=== PATIENT | male | born 1990 | race African-American/Black ===

== ENCOUNTER 2019-08-14 09:21 | Emergency (ER) | payer OTHER ==
[~2019-08-14] VITALS: Ht 185.4 cm; Wt 104.3 kg
--- NOTE | ~2019-08-14 | EMS ---
[address] [address] EMS Patient Care Report Name: VIJI ORTEGA Room #: PRE M.R.#: [id number] Admission: Attend Phys: Discharge: Date of : [birth year] Report #: [id number] THIS REPORT FOR: //name// Report Transmitted: 08/14/2019 08:53 EMS Care Summary [place], [place]/[facility] Incident [id number] @ 08/14/2019 08:44 Incident Location [address] [place] [address] Patient VIJI ORTEGA Male, 29 Years 1990 Patient Address [address] [place], [place] [id number] Patient History None Reported, Patient Allergies No known allergies, Patient Medications None Reported, Chief Complaint POSTICTAL, CONFUSED, COMBATIVE Disposition Transported No Lights/[place] Dispatch Reason Convulsions/Seizure Transported To [facility] Narrative UPON ARRIVAL PT ON FLOOR BY DOOR BEING HELD BY FRIEND. SHE STATES SHE HEARD HIM FALL TO THE GROUND AND WITNESSED SOME SEIZURE ACTIVITY. PT HAS NO SEIZURE HX. PT WAS DRINKING SOME LAST NIGHT AND UNKNOWN OF ANY DRUG USE. PT APPEARS POSTICTAL AND IS UNABLE TO FOLLOW ANY COMMANDS. UNABLE TO GET VITALS DUE TO PT [address] [address] EMS Patient Care Report Name: VIJI ORTEGA Room #: PRE ER M.R.#: [id number] Admission: Attend Phys: Discharge: Date of : [birth year] Report #: [id number] FLAILING ABOUT. PT LIFTED TO COT AND LOADED. PT PULLS OUT IV WHEN INSERTED. PT HAS TO BE RESTRAINED TO COT AND ATTEMPTS TO BITE CREW. HANDS TAKEN OFF PT TO LET HIM LEAVE TO PREVENT ANY HARM TO CREW. PT'S FRIENDS CONVINCES HIM TO STAY IN AMBULANCE. PT TRANSPORTED TO ER WITH ONLY [place], PT IS STILL UNCOOPERATIVE BUT STAYS CALM LONG NOTHING IS BEING DONE TO HIM. Initial Vitals @08:49P: 120,R: 24,Pain: 0/10,GCS: 11,Glucose: 78, @09:10P: 120,R: 20,GCS: 14, Assessments @08:49MENTAL:Confused,SKIN:Diaphoresis,HEENT:Eyes: Right: Dilated,Eyes: Left: Dilated,LUNG SOUNDS:General: No Abnormalities,ABDOMEN:General: No Abnormalities,PELVIS//GI:EXTREMITIES:Left Arm: No Abnormalities,Right Arm: No Abnormalities,Left Leg: No Abnormalities,Right Leg: No Abnormalities,PULSE:Radial: 2+ Normal,NEURO:Seizures, Impression Seizures Procedures @08:49ALS AssessmentResponse: UnchangedSucceeded@09:00Saline Lock 0cc (20 ga) Site: Antecubital-LeftResponse: UnchangedFailed Timeline 08:42,Call Received 08:42,Dispatch Notified 08:44,Dispatched 08:44,En Route 08:47,On Scene 08:48,At Patient 08:49,ALS Assessment,Response: UnchangedSucceeded, 08:49,BP: / M,PULSE: 120,RR: 24 R,SPO2: Ox,ETCO2: ,B,PAIN: 0,GCS: 11, 09:00,Saline Lock 0cc 20 ga Site: Antecubital-Left,Response: UnchangedFailed, 09:04,Depart Scene 09:10,BP: / M,PULSE: 120,RR: 20 R,SPO2: Ox,ETCO2: ,BG: ,PAIN: ,GCS: 14, 09:16,At Destination 09:35,Call Closed Disclaimer v1.1 Copyright 2020 [employer] This EMS Care Summary contains data elements from the applicable legal record (which may be displayed differently). It is designed to provide pertinent information for the following purposes: continuity of care, clinical quality, and state data reporting. The complete legal record is available to ED staff and administrators of the receiving hospital in [employer] Patient Tracker. All data [address] [address] EMS Patient Care Report Name: VIJI ORTEGA Room #: [facility] M.R.#: [id number] Admission: Attend Phys: Discharge: Date of : [birth year] Report #: [id number] is provided "as is."
[2019-08-14 09:45] LABS: URINE BILIRUBIN NEGATIVE (Negative); URINE BLOOD 2+ (Negative); URINE CLARITY CLEAR; URINE COLOR YELLOW; URINE GLUCOSE-RANDOM* NEGATIVE (Negative); URINE KETONES NEGATIVE (Negative); URINE LEUKOCYTES-REFLEX NEGATIVE (Negative); URINE NITRITE-REFLEX NEGATIVE (Negative); URINE PROTEIN (DIPSTICK) 1+ (Negative); URINE SPECIFIC GRAVITY >= 1.030 (1.005-1.035); URINE UROBILINOGEN 0.2 E.U./dl (0.2-1.0)
[2019-08-14 09:45] LABS: ABSOLUTE NEUTROPHILS 7.1 thou/uL (1.4-8.2); BASOPHILS 0.8 % (0.0-2.0); EOSINOPHILS 1.5 % (0.0-3.0); HEMATOCRIT 46.8 % (42.0-52.0); HEMOGLOBIN 14.8 gm/dL (14.0-18.0); LYMPHOCYTES 34.8 % (24.0-44.0); MCH 27.1 pg (26.0-34.0); MCHC 31.7 g/dL (28.0-37.0); MCV 85.3 fL (80.0-100.0); MONOCYTES 7.2 % (1.0-8.0); PLATELET COUNT 299 thou/uL (150-400); POLYS 55.7 % (36.0-66.0); RBC 5.48 mil/uL (4.50-6.00); RDW 14.6 % (10.5-14.5); WBC 12.7 thou/uL (4.0-11.0)
[2019-08-14 09:53] LABS: ANION GAP 26 mmol/L (7-16); BUN 17 mg/dL (7-18); CALCIUM 9.1 mg/dL (8.5-10.1); CHLORIDE 99 mmol/L (98-107); CO2 13 mmol/L (21-32); CREATININE 1.7 mg/dL (0.7-1.3); GLUCOSE 104 mg/dL (74-106); POTASSIUM 3.4 mmol/L (3.5-5.1); SODIUM 138 mmol/L (136-145)
[2019-08-14 10:00] LABS: CASTS None Seen /LPF (None Seen); CRYSTALS None Seen /LPF (None Seen); SQUAMOUS None Seen /LPF (0-3); URINE WBC-REFLEX 0-5 Rare /HPF (0-5)
[2019-08-14 10:01] LABS: BACTERIA-REFLEX 1-9 Few /HPF (None Seen); URINE RBC 0-2 Rare /HPF (0-2)
[2019-08-14 10:02] LABS: TROPONIN-I <0.06 ng/mL (<0.06)
[2019-08-14 10:03] LABS: AMP/METHAMP Negative (Negative); BARBITURATES Negative (Negative); BENZODIAZEPINES Negative (Negative); COCAINE Negative (Negative); METHADONE Negative (Negative); OPIATES Negative (Negative); PCP Negative (Negative)
[2019-08-14 15:23] LABS: CALCIUM 7.4 mg/dL (8.5-10.1); CREATININE 1.1 mg/dL (0.7-1.3); POTASSIUM 3.4 mmol/L (3.5-5.1)
[2019-08-14 15:42] VITALS: BP 139/92
--- NOTE | 2019-08-15 07:51 | EKG ---
[facility] [place] [address] ELECTROCARDIOGRAM REPORT Name: VIJI ORTEGA Room #: DEP [facility].#: [id number] Admission: 08/14/19 Attend Phys: Discharge: 08/14/19 Date of : [birth year] Report #: [id number] THIS REPORT FOR: cc: FAM - No family physician/PCP FAM - No family physician/PCP Josafat Meredith MD [facility] ~ THIS REPORT FOR: //name// [facility] ED Test Date: 2019-08-14 Test Time: 11:10:49 Pat Name: VIJI ORTEGA Department: Room: Gender: Chief Executive: [facility] : 1990 Requested By: Alexander Lancaster Order Number: [id number] MD: Josafat Meredith Measurements Intervals [place] Rate: 67 P: 18 MA: 156 QRS: 33 QRSD: 85 T: 6 QT: 401 QTc: 424 Interpretive Statements Sinus rhythm ST elev, probable normal early repol pattern No previous ECG available for comparison Electronically Signed On 08-15-2019 7:50:30 CDT by Josafat Meredith [email or web address] <ELECTRONICALLY SIGNED> By: Josafat Meredith MD, [facility] 08/15/19 0750 09 Josafat Meredith MD, [facility] /EPI
--- NOTE | 2019-08-15 18:06 | HC ---
[facility] [address] CONSULTATION Name: VIJI ORTEGA Room #: DEP [facility].#: [id number] Admission: 08/14/19 Attend Phys: Discharge: 08/14/19 Date of : [birth year] Report #: [id number] THIS REPORT FOR: cc: [facility] - No family physician/PCP [facility] - No family physician/PCP Reg Flower MD ~ CC: [facility] physician/PCP Alexander Lancaster DATE OF SERVICE: 08/14/2019 HISTORY OF PRESENT ILLNESS: This is a 29-year-old male patient who was discussed with Dr. Cherry before and after seeing the patient. The patient was evaluated by me for seizure. The patient does not remember much about the seizure. Significant other indicated that the patient was found on the floor. He was shaking. She thinks that he shook for about 5 minutes. He became somewhat combative, but apparently he was doing better, but when I saw this patient, he was completely noncompliant. Wanted to go home, refused to answer my question and became very aggressive. I tried to explain to him the reason for my questioning and the consequences of not answering those questions and not following the medical advice. It did not do any good and the patient continued to be very uncooperative and just wanted to go home. REVIEW OF SYSTEMS: I tried to ask him any factors, which may have contributed to his seizure including sleep deprivation, stress, etc. He refused to answer that question and in fact became very aggressive. Similarly, he did not provide me any history for any prior seizure or family history, but he has told Emergency Room physician that this was his first seizure. That is all the things I could do as far as 14-point review of system is concerned because he refused to answer any other further questions. PAST MEDICAL HISTORY: The best I can tell is negative for seizure. FAMILY HISTORY: He will not give. SOCIAL HISTORY: He will not provide any social history to me either. His lab is positive for marijuana. PHYSICAL EXAMINATION: Pretty limited. He let me listen to his heart. I tried to do the extraocular examination, he partly cooperated. It looks like he can move all four extremities and there is no meningeal sign. He did not allow any further evaluation. Vital signs is 139/92, respirations 15, pulse is 79, temperature is 98.6. Cardiac examination in fact does not show anything. His CT scan does not demonstrate any definite abnormality. [address] [address] CONSULTATION Name: VIJI ORTEGA Room #: DEP LEROY Betancourt#: [id number] Admission: 08/14/19 Attend Phys: Discharge: 08/14/19 Date of : [birth year] Report #: [id number] IMPRESSION: This patient appeared to have new onset seizure with a pretty high lactic acidosis. We need to find out if it was a provoked seizure or unprovoked seizure, but he will not let us. He is competent to make decision and he understands the consequences of not listening to the medical advice, but he tells me he is going home, but he needs to take all the seizure precautions including the fact he cannot drive. I cannot do anymore assessment in this patient because of the patient's complete uncooperation. I conveyed that to Emergency Room physician. We will be available in case he wants to do further testing and want to provide history and listen to medical intern. <ELECTRONICALLY SIGNED> By: Reg Flower MD 08/15/19 1806 1601 1616 Reg Flower MD /nt
== END 2019-08-14 15:42 | disposition home or self-care (01) ==
LOC: ER 09:21
PROVIDERS: Emergency Medicine
DX: G40.409 Other generalized epilepsy and epileptic syndromes, not intractable, without status epilepticus (principal)

== ENCOUNTER 2019-08-14 17:40 | Inpatient (IN) | payer OTHER ==
[~2019-08-14] VITALS: Ht 182.9 cm; Wt 89.4 kg
[2019-08-14 17:46] VITALS: BP 149/101
[2019-08-14 18:43] LABS: HEMOGLOBIN 13.6 gm/dL (14.0-18.0); MCH 27.5 pg (26.0-34.0); MCHC 33.1 g/dL (28.0-37.0); RBC 4.94 mil/uL (4.50-6.00); RDW 14.3 % (10.5-14.5); WBC 17.3 thou/uL (4.0-11.0)
[2019-08-14 18:56] LABS: CALCIUM 8.6 mg/dL (8.5-10.1); CREATININE 1.2 mg/dL (0.7-1.3); POTASSIUM 3.9 mmol/L (3.5-5.1)
[2019-08-14 19:12] LABS: ALBUMIN 3.9 g/dL (3.4-5.0); MAGNESIUM 2.2 mg/dL (1.8-2.4); PHOSPHORUS 3.3 mg/dL (2.5-4.9); TOTAL BILIRUBIN 0.8 mg/dL (0.2-1.0); TOTAL PROTEIN 7.9 g/dL (6.4-8.2)
[2019-08-14 20:04] LABS: URINE BILIRUBIN NEGATIVE (Negative); URINE BLOOD TRACE (Negative); URINE CLARITY CLEAR; URINE COLOR YELLOW; URINE GLUCOSE-RANDOM* NEGATIVE (Negative); URINE KETONES NEGATIVE (Negative); URINE LEUKOCYTES-REFLEX TRACE (Negative); URINE NITRITE-REFLEX NEGATIVE (Negative); URINE PROTEIN (DIPSTICK) NEGATIVE (Negative); URINE SPECIFIC GRAVITY 1.015 (1.005-1.035); URINE UROBILINOGEN 0.2 E.U./dl (0.2-1.0)
[2019-08-14 20:20] VITALS: BP 138/88
--- NOTE | 2019-08-14 20:27 | NUR ---
CALLED TO GIVE REPORT BUT NOBODY ANSWERED PHONE. CHARGE NURSE NOTIFIED
[2019-08-14 20:37] VITALS: BP 135/79
--- NOTE | 2019-08-14 21:02 | NUR ---
PT ASKED IF GF WILL STAY IN HOSPITAL WITH HIM BUT WAS TOLD DUE TO PANDEMIC VISITORS ARE NOT ALLOWED TO STAY AT THIS TIME. CHARGE NURSE AND PHYSICIAN NOTIFIED
[2019-08-14 21:17] VITALS: BP 147/91
[2019-08-15 05:16] VITALS: BP 138/92
[2019-08-15 06:54] LABS: ABSOLUTE NEUTROPHILS 10.8 thou/uL (1.4-8.2); BASOPHILS 0.3 % (0.0-2.0); EOSINOPHILS 0.2 % (0.0-3.0); HEMATOCRIT 39.7 % (42.0-52.0); HEMOGLOBIN 13.2 gm/dL (14.0-18.0); LYMPHOCYTES 13.4 % (24.0-44.0); MCH 27.5 pg (26.0-34.0); MCHC 33.2 g/dL (28.0-37.0); MCV 82.9 fL (80.0-100.0); MONOCYTES 8.8 % (1.0-8.0); PLATELET COUNT 226 thou/uL (150-400); POLYS 77.3 % (36.0-66.0); RDW 14.4 % (10.5-14.5)
[2019-08-15 06:56] LABS: CALCIUM 8.5 mg/dL (8.5-10.1); CREATININE 1.3 mg/dL (0.7-1.3); MAGNESIUM 2.3 mg/dL (1.8-2.4); POTASSIUM 3.6 mmol/L (3.5-5.1)
[2019-08-15 07:46] VITALS: BP 151/91
--- NOTE | 2019-08-15 07:54 | NUR ---
PT ADMITTED FOR SEIZURE AND NAUSEA AND VOMITING ADMISSION ASSESSMENT AND QUESTIONAIRE COMPLETED VSS, PT R/V UNDERSTANDING OF POC. IV INFUSING WITHOUT DIFFICULTY PT VOIDING QS, UP AD TERRA SKIN C/D/I. PT REPORTS FEELING MUCH BETTER THIS MORNING CONTINUE TO MONITOR.
--- NOTE | 2019-08-15 16:17 | NUR ---
CM ATTEMPTED TO CONTACT PT VIA ROOM PHONE NUMEROUS TIMES THIS DAY WITH NO SUCCESS. WE ARE STILL AWAITING NEURO TO SEE PT. CM FOLLOWING REGARDING DC PLANNING.
[2019-08-15 17:28] VITALS: BP 154/96
--- NOTE | 2019-08-15 18:20 | NUR ---
PT IS AOX4, VSS, NO C/O PAIN AT THIS TIME. PT IS TOLERATING REGULAR DIET. IV PATIENT WITH ANTIBIOTIC THERAPY. PT CALLS APPROPRIATELY. MRI CURRENTLY BEING COMPLETED. UP AD TERRA, CALL LIGHT IN REACH, WILL CONTINUE TO MONITOR.
[2019-08-15 19:02] VITALS: BP 155/106
--- NOTE | 2019-08-15 22:00 | NUR ---
Assumed pt care at 1900. Pt A/OX4,Gautam adamant he wants to go home, has an MRI pending to be done but he reported the dtr fell and in the ED now he has to dc. Dr. Flower notified and stated it wasn't his final decision to dc the pt but the hospitalist since he has other medical issues. Any PRACTICING DERMATOLOGIST contacted and updated on the pt; per pt can dc AMA because they would like the MRI done to rule out seizures cause pt updated on the decision and he can only discharge againist medical advice. Pt signed the AMA paperwork and escorted by the ROOTER OPERATOR to his ride, all belongings sent with pt. Pt stated he'll have an outpt MRI done tomorrow.
--- NOTE | 2019-08-29 12:02 | HC ---
[facility] [place] [address] CONSULTATION Name: VIJI ORTEGA Room #: 459-P [facility] IN M.R.#: [id number] Admission: 08/14/19 Attend Phys: Odessa Stauffer Discharge: 08/15/19 Date of : [birth year] Report #: [id number] THIS REPORT FOR: cc: [facility] - No family physician/PCP IT[facility] - No family physician/PCP Reg Flower MD ~ CC: [facility] physician/PCP Odessa Stauffer DATE OF SERVICE: 08/15/2019 HISTORY OF PRESENT ILLNESS: This is a 29-year-old male patient who was in the Emergency Room and I tried to see him, he refused to be examined, taken the history and get an EEG done, which was recommended, then he left. It looks like he was readmitted and a consultation was called to me this evening and I saw the patient within an hour of being called for consultation, but the patient is still not very happy. He is more cooperative to some extent, but he still want to give straight forward answers. He is adamant that he wants to go home. He said he will sign the papers saying that he is going on his own responsibility and against medical recommendation, but he wants to go home. I tried to get the amount of alcohol he drinks and for how long he drank that much. He only gave tangential answers and never gave his straight forward answers. He indicated that he has given those answers to other people in the past and I reviewed those records and it looks like he was drinking a large amount of alcohol at least recently. REVIEW OF SYSTEMS: Attempted, but has to be done in a hurry because the patient appeared to get very tangential and I did not want him to go to the same condition he was in and at least wanted to get some examine. He does smoke marijuana daily. PHYSICAL EXAMINATION: His examination is also difficult. He talks. I tried to do the cranial nerve examination and he claims this is the examination to look for alcohol intake. So, I tried to do the best I could, but I do not think he has any focal deficit or any meningeal sign. His labs were reviewed. His white count is 14, which was done on 06/21. His CPK is still high and he has rhabdo. He did have a CT scan of the head yesterday, which was unremarkable. IMPRESSION: Very difficult to form in this patient because he will not cooperate. I suspect his seizure may be alcohol-related seizure, but it is difficult to tell. He is adamant he is going home and if he does go home, he should sign against medical advice papers. This is because his CPK is still up. He needs hydration. He needs further workup with an MRI and all of this need to be done before he goes home. To me, it looks like he is going to sign out [facility] [address] [address] CONSULTATION Name: VIJI ORTEGA Room #: 459-P [facility] IN M.R.#: [id number] Admission: 08/14/19 Attend Phys: Odessa Stauffer Discharge: 08/15/19 Date of : [birth year] Report #: [id number] against medical advice and he is going to go home today. Because of that, I called audiovisual aids technician and he is willing to do an EEG at least that will exclude any epileptic seizure. His need for anticonvulsant is difficult to determine because it is difficult to determine what the chance of him having his future seizure is because of the lack of workup and lack of cooperation. I will suggest the followin. Get an EEG done. 2. If EEG is normal, we will keep him on without anticonvulsant because that is what he wants. 3. He should take seizure precaution and he should not drive at least for 6 months and that has been told to him by other people and I told him the same thing. 4. He should avoid any alcohol or any seizure causing factors like insomnia, stress and that was discussed with him. 5. He should be on thiamine and should not drink any alcohol at all. Thiamine should be at least for 5 days. 6. I will defer to you what instruction you would like to give him if he leaves [facility], and looks like he is pretty adamant that he is going to leave [facility], about his rhabdo and oral hydration since he would not stay in the hospital. I called Dr. Salinas, the patient's hospitalist and discussed the patient with him and I already talked to the nurses and I will talk again after this dictation. <ELECTRONICALLY SIGNED> By: Reg Flower MD 08/29/19 1202 1708 58 Reg Flower MD /nt
--- NOTE | 2019-08-29 12:03 | EEG ---
[facility] [address] [address] ELECTROENCEPHALOGRAM Name: VIJI ORTEGA Room #: 459-P [facility] IN M.R.#: [id number] Admission: 08/14/19 Attend Phys: Odessa Thorne Discharge: 08/15/19 Date of : [birth year] Report #: [id number] THIS REPORT FOR: //name// CC: [facility] physician/PCP Odessa Stauffer DATE OF SERVICE: 08/15/2019 This patient is being evaluated for seizure disorder. EEG was done by placing the electrode by standard 10-20 system of electrode placement. Both referential and sequential montages were used for recording. Background activity in this patient's EEG is about 10-11 Hz and 30 microvolts. There is symmetrical activity. Photic stimulation is unremarkable. Throughout the record, no active epileptiform activity was noticed. IMPRESSION: This patient's EEG is within normal limits. Thank you very much for this referral. <ELECTRONICALLY SIGNED> By: Reg Flower MD 08/29/19 1203 1846 [id number] Reg Flower MD /nt
== END 2019-08-15 21:50 | disposition home health service (06) | DRG 101 ==
LOC: ER 17:40 → EROBS 19:33 → 4W 21:06
PROVIDERS: Emergency Medicine; Nurse Practitioner Family; ADMIT Hospitalist; ATTEND Hospitalist
DX: G40.909 Epilepsy, unspecified, not intractable, without status epilepticus (principal); M62.82 Rhabdomyolysis; F12.90 Cannabis use, unspecified, uncomplicated; F10.20 Alcohol dependence, uncomplicated; D72.829 Elevated white blood cell count, unspecified; Z53.29 Procedure and treatment not carried out because of patient's decision for other reasons; Z71.51 Drug abuse counseling and surveillance of drug abuser; Z79.899 Other long term (current) drug therapy
CPT/HCPCS: 10040; 10045

== ENCOUNTER 2019-10-09 05:10 | Emergency (ER) | payer OTHER ==
[~2019-10-09] VITALS: Ht 185.4 cm; Wt 104.3 kg
[2019-10-09 05:44] LABS: ABSOLUTE NEUTROPHILS 4.9 thou/uL (1.4-8.2); BASOPHILS 0.6 % (0.0-2.0); EOSINOPHILS 2.6 % (0.0-3.0); HEMATOCRIT 46.2 % (42.0-52.0); HEMOGLOBIN 14.6 gm/dL (14.0-18.0); LYMPHOCYTES 42.3 % (24.0-44.0); MCH 27.3 pg (26.0-34.0); MCHC 31.7 g/dL (28.0-37.0); MCV 86.3 fL (80.0-100.0); PLATELET COUNT 267 thou/uL (150-400); POLYS 44.5 % (36.0-66.0); RBC 5.35 mil/uL (4.50-6.00); RDW 14.5 % (10.5-14.5); WBC 11.1 thou/uL (4.0-11.0)
[2019-10-09 05:52] LABS: URINE BILIRUBIN NEGATIVE (Negative); URINE BLOOD 2+ (Negative); URINE CLARITY CLEAR; URINE COLOR YELLOW; URINE GLUCOSE-RANDOM* NEGATIVE (Negative); URINE KETONES NEGATIVE (Negative); URINE LEUKOCYTES-REFLEX NEGATIVE (Negative); URINE NITRITE-REFLEX NEGATIVE (Negative); URINE PROTEIN (DIPSTICK) 1+ (Negative); URINE SPECIFIC GRAVITY 1.025 (1.005-1.035); URINE UROBILINOGEN 0.2 E.U./dl (0.2-1.0)
[2019-10-09 05:56] LABS: CALCIUM 8.8 mg/dL (8.5-10.1); CREATININE 1.6 mg/dL (0.7-1.3); POTASSIUM 4.3 mmol/L (3.5-5.1)
[2019-10-09 06:01] LABS: ALBUMIN 4.3 g/dL (3.4-5.0); TOTAL BILIRUBIN 0.5 mg/dL (0.2-1.0); TOTAL PROTEIN 8.7 g/dL (6.4-8.2)
[2019-10-09 06:01] LABS: AMP/METHAMP Negative (Negative); BARBITURATES Negative (Negative); BENZODIAZEPINES Negative (Negative); COCAINE Negative (Negative); METHADONE Negative (Negative); OPIATES Negative (Negative); PCP Negative (Negative)
[2019-10-09 06:05] LABS: CASTS None Seen /LPF (None Seen); MUCUS 4-6 Moderate strn/LPF (None Seen); SQUAMOUS 0-3 Few /LPF (0-3)
[2019-10-09 06:06] LABS: BACTERIA-REFLEX None Seen /HPF (None Seen); CRYSTALS None Seen /LPF (None Seen); URINE RBC 0-2 Rare /HPF (0-2); URINE WBC-REFLEX 0-5 Rare /HPF (0-5)
[2019-10-09 07:10] VITALS: BP 133/93
--- NOTE | 2019-10-09 08:07 | EKG ---
[facility] [place] [address] ELECTROCARDIOGRAM REPORT Name: VIJI ORTEGA Room #: DEP [facility].#: [id number] Admission: 10/09/19 Attend Phys: Discharge: 10/09/19 Date of : [birth year] Report #: [id number] THIS REPORT FOR: cc: NO FAMILY PHYSICIAN or PCP NO FAMILY PHYSICIAN or PCP Josafat Meredith MD [facility] ~ THIS REPORT FOR: //name// [facility] ED Test Date: 2019-10-09 Test Time: 05:27:42 Pat Name: VIJI ORTEGA Department: Room: Gender: M Coding Validator: raymond : 1990 Requested By: Ruben Argueta Order Number: [id number] MD: Josafat Meredith Measurements Intervals [place] Rate: 80 P: 67 WI: 139 QRS: 10 QRSD: 100 T: 16 QT: 379 QTc: 438 Interpretive Statements Sinus rhythm Normal tracing Compared to ECG 08/14/2019 11:10:49 No significant change was found Electronically Signed On 10-09-2019 8:07:37 CDT by Josaaft Meredith [email or web address] <ELECTRONICALLY SIGNED> By: Josafat Meredith MD, [facility] 10/09/19806 D: [id number] 6 Josafat Meredith MD, FACC /EPI
== END 2019-10-09 07:10 | disposition home or self-care (01) ==
LOC: ER 05:10
PROVIDERS: Emergency Medicine
DX: R56.9 Unspecified convulsions (principal); M25.562 Pain in left knee; R55 Syncope and collapse

== ENCOUNTER 2020-04-10 07:12 | Emergency (ER) | payer OTHER ==
[~2020-04-10] VITALS: Ht 185.4 cm; Wt 95.3 kg
--- NOTE | ~2020-04-10 | HC ---
[facility] [place] [address] [place] [address] CONSULTATION Name: VIJI ORTEGA Room #: DEP Serafin#: [id number] Admission: 04/10/20 Attend Phys: Discharge: 04/10/20 Date of : [birth year] Report #: [id number] THIS REPORT FOR: cc: FAM - Family physician unknown FAM - Family physician unknown Reg Flower MD ~ DATE OF SERVICE: 04/10/2020 HISTORY OF PRESENT ILLNESS: This is a 29-year-old male patient who was seen in the Emergency Room at request of the Emergency Room physician. I talked to him first and subsequently I saw the patient, I tried to talk to him again, but he is in the middle of the code, so I have asked the staff to ask him to call me when he is out of code. I tried to talk to the patient's , but she is gone and not available in the Emergency Room. He thinks she may have gone to eat something. His brother was there. His records in the computer were reviewed. He said he just had 2 seizures in his life. First one was in January and second one was today, but then he says he does not remember much about the seizure. I tried to talk to the , but I am unable to look at her and unable to talk to her. I reviewed the note from the last time and he has left AMA. His creatinine was high at that time and his creatinine is high now. Those records indicate that he had a prior history of seizures. The patient adamantly denies that and I cannot reach the patient's . The last hospital report indicates that he had 2 seizures even that time, but he insists that he just had 2 seizures all his life, one was today and one was in January. He also says that he does not use any drugs and he has given a different history to the Emergency Room physician, but his drug screen is positive for marijuana. He is very reluctant to tell about his alcohol use. He says he drinks a lot on the weekend, but does not tell me how much. All of it makes it very difficult to tell what is going on with him. REVIEW OF SYSTEMS: Indicate that his creatinine was high. It is high, now is not very high. His lactic acid is high and that can be because of seizure. He said 14-point review of system is otherwise unremarkable. PAST MEDICAL HISTORY: Positive for seizure, but other history is not clear. FAMILY HISTORY: Negative for seizure. SOCIAL HISTORY: He has a spouse. I cannot reach her and other history is confusing as summarized above. PHYSICAL EXAMINATION: Indicate he is alert, responsive, able to follow simple and complex command. His speech, concentration, fund of knowledge and memory is at his baseline. His cranial nerve examination 2-12 looks mostly unremarkable. I do not see any nystagmus. His strength, sensation, reflexes, and tone is [facility] [address] [place] [address] CONSULTATION Name: VIJI ORTEGA Room #: DEP Serafin#: [id number] Admission: 04/10/20 Attend Phys: Discharge: 04/10/20 Date of : [birth year] Report #: [id number] symmetrical. He has no cerebellar sign. In fact, he is able to walk without any problem. His blood pressure is 126/99, respiration is 19. He has no respiratory difficulty, pulse is 59, temperature is 97.7. LABORATORY DATA: Mostly unremarkable except for a high creatinine. His CPK is normal. His lactic acid is high. His white count is normal. IMPRESSION: This patient most likely has seizure disorder. It looks like he has seizures in the past. He does not provide any straightforward history. That makes it very difficult to evaluate the patient and can lead to the complication and I discussed that very clearly with him, but I still did not get any straightforward history in this patient. He has seizures for a while. I talked to him about anticonvulsant. He wants to stay on anticonvulsant. He is a pretty big meagan, so I think either a starting dose of 500 mg b.i.d. or starting dose of 750 b.i.d. can be given to him. Then he needs to see a neurologist on a regular basis. He wants to go to [place], which will be okay. He will need more workup like MRI and other etiology for his seizure. My recommendation was that he should get admitted because his kidney function is abnormal. He has lactic acid, which is most likely because of seizure, but we cannot rule out any other etiology. He does not want to stay in the hospital. He wants to go home. He is competent to make his decision. He was explained the things last time when he was here and he left [facility] and he is saying that he will leave [facility] if he has to, but he is not staying. I talked to Emergency Room physician again. I asked him to add a magnesium and a thyroid function test on him. I asked him to give him a prescription for Keppra 500 mg p.o. b.i.d., which can be increased to 750 mg p.o. b.i.d. He already got a dose of 1000 mg. He needs to take strict seizure precautions and I discussed with him. He cannot drive. I stressed very strongly to him that he cannot drive at least for 6 months or maybe longer depending upon his condition and depending upon any neurologist he want to follow up and looks like he wants to follow up with Anthony. If this patient decides to get admitted, I will get an EEG and an MRI done here. If he decides not to get admitted, which appeared to be the case, then he must make an appointment with a neurologist as well as family doctor as soon as possible. Thank you very much for this referral and if you have any question, please feel free to contact me. By: 1255 1314 Reg Flower MD /nt
[2020-04-10 07:53] LABS: ABSOLUTE NEUTROPHILS 3.2 thou/uL (1.4-8.2); BASOPHILS 0.8 % (0.0-2.0); EOSINOPHILS 2.4 % (0.0-3.0); HEMATOCRIT 42.8 % (42.0-52.0); HEMOGLOBIN 13.8 gm/dL (14.0-18.0); LYMPHOCYTES 38.6 % (24.0-44.0); MCH 26.8 pg (26.0-34.0); MCHC 32.3 g/dL (28.0-37.0); MCV 82.9 fL (80.0-100.0); MONOCYTES 8.1 % (1.0-8.0); PLATELET COUNT 267 thou/uL (150-400); POLYS 50.1 % (36.0-66.0); RBC 5.16 mil/uL (4.50-6.00); RDW 14.3 % (10.5-14.5); WBC 6.3 thou/uL (4.0-11.0)
[2020-04-10 08:10] LABS: CALCIUM 9.2 mg/dL (8.5-10.1); CREATININE 1.6 mg/dL (0.7-1.3); POTASSIUM 4.1 mmol/L (3.5-5.1)
[2020-04-10 08:19] LABS: URINE BILIRUBIN NEGATIVE (Negative); URINE BLOOD 2+ (Negative); URINE CLARITY CLEAR; URINE COLOR YELLOW; URINE GLUCOSE-RANDOM* NEGATIVE (Negative); URINE KETONES NEGATIVE (Negative); URINE LEUKOCYTES-REFLEX NEGATIVE (Negative); URINE NITRITE-REFLEX NEGATIVE (Negative); URINE PROTEIN (DIPSTICK) 2+ (Negative); URINE SPECIFIC GRAVITY >= 1.030 (1.005-1.035); URINE UROBILINOGEN 0.2 E.U./dl (0.2-1.0)
[2020-04-10 09:05] LABS: BACTERIA-REFLEX 1-9 Few /HPF (None Seen); CASTS None Seen /LPF (None Seen); CRYSTALS None Seen /LPF (None Seen); SQUAMOUS None Seen /LPF (0-3); URINE RBC 0-2 Rare /HPF (0-2); URINE WBC-REFLEX 0-5 Rare /HPF (0-5)
[2020-04-10 09:11] LABS: AMP/METHAMP Negative (Negative); BARBITURATES Negative (Negative); BENZODIAZEPINES Negative (Negative); COCAINE Negative (Negative); METHADONE Negative (Negative); OPIATES Negative (Negative); PCP Negative (Negative)
--- NOTE | 2020-04-10 10:32 | EKG ---
[facility] [place] [address] ELECTROCARDIOGRAM REPORT Name: VIJI ORTEGA Room #: DEP LEROY Betancourt#: [id number] Admission: 04/10/20 Attend Phys: Discharge: 04/10/20 Date of : [birth year] Report #: [id number] [facility] ED Test Date: 2020-04-10 Test Time: 07:44:56 Pat Name: VIJI ORTEGA Department: Room: Gender: M Orchestra Director: PANKAJ : 1990 Requested By: Danie Woodall Order Number: [id number] MD: Devaughn Laws Measurements Intervals [place] Rate: 82 P: 37 [place]: 147 QRS: 23 QRSD: 95 T: -3 QT: 374 QTc: 437 Interpretive Statements Sinus rhythm Borderline T abnormalities, inferior leads Compared to ECG 02/02/2020 09:52:06 T-wave abnormality now present Sinus tachycardia no longer present Atrial premature complex(es) no longer present Left ventricular hypertrophy no longer present Electronically Signed On 04-10-2020 10:32:40 WEB DEVELOPMENT INSTRUCTOR by Devaughn Laws [email or web address] <ELECTRONICALLY SIGNED> By: Devaughn Laws MD, [facility] 04/10/20 1032 Devaughn Laws MD, [facility] /EPI
[2020-04-10] MEDS ORDERED: KEPPRA 500 MG500 MG PO (13:40)
[2020-04-10] MEDS ORDERED: KEPPRA750 MG PO (13:40)
[2020-04-10 13:50] VITALS: BP 138/81
== END 2020-04-10 13:50 | disposition home or self-care (01) ==
LOC: ER 07:12
PROVIDERS: Emergency Medicine
DX: R56.9 Unspecified convulsions (principal)